=== PATIENT | male | born 1970 | race Caucasian/White ===

== ENCOUNTER 2019-05-08 11:14 | Emergency (ER) | payer BC ==
[2019-05-08] MEDS ORDERED: 0.9 % SODIUM CHLORIDE 1000ML 1,000 ML IV PRN (11:25)
[2019-05-08] MEDS ORDERED: ASPIRIN 81 MG CHEWABLE TABLET PO ONE (11:25)
[2019-05-08] MEDS ORDERED: IPRATROPIUM/ALBUTEROL (0.5MG/3MG) NEB INH ONE (11:28)
[2019-05-08 11:49] LABS: ABSOLUTE NEUTROPHIL COUNT 11.83; BASO % 0.1 % (0-6); EOS % 0.3 % (0-6); GRAN % 78.7 % (47-80); HEMATOCRIT 41.6 % (42.0-52.0); HEMOGLOBIN 14.9 gm/dl (14.0-18.0); LYMPH % 15.2 % (16-45); MEAN CELL VOLUME 88.3 fl (81-97); MEAN CORPUSCULAR HEMOGLOBIN 31.6 pg (27-33); MEAN CORPUSCULAR HGB CONC 35.8 g/dl (32-36); MEAN PLATELET VOLUME 8.6 fl (7.4-10.4); MONO % 5.7 % (0-9); PLATELET COUNT 291 K/uL (130-400); RED BLOOD COUNT 4.71 M/uL (4.40-5.70); RED CELL DISTRIBUTION WIDTH 12.5 % (11.5-14.5)
[2019-05-08 11:59] LABS: PARTIAL THROMBOPLASTIN TIME 24.7 SECONDS (24.5-39.1)
[2019-05-08 12:01] LABS: BLOOD UREA NITROGEN 17 mg/dL (6-20); EST GLOMERULAR FILTRATION RATE > 60 mL/min
[2019-05-08 12:04] LABS: GLUCOSE,RANDOM 140 mg/dL (74-109)
--- NOTE | 2019-05-08 12:06 | Emergency Department Record ---
History of Present Illness - General Chief Complaint: Chest Pain Stated Complaint: HYPERTENTION,CHEST PAIN Time Seen by Provider: 05/08/19 11:23 Source: Patient, RN notes reviewed Mode of Arrival: Ambulatory - History of Present Illness Initial Comments: chest pain started yesterday and some heaviiness in the chest today and also coughing and sob and no history of heart disease but smokes cigs and has COPD and uses duoneb at home. Clear productive sputum. pain is reproducible with rotation of his shoulders. Patient had low back injections yesterday at the pain clinic at [facility] [place] Complaint: Chest pain Onset/Timin -: Days(s) Pain Location: Left chest Improves With: Nothing Worsens With: Nothing - Related Data Home Medications Medication Instructions Recorded Confirmed Last Taken Fluoxetine HCl [Prozac] 60 mg PO DAILY 05/08/19 05/08/19 05/07/19 Loratadine 10 mg PO DAILY 05/08/19 05/08/19 05/07/19 Losartan Potassium 100 mg PO DAILY 05/08/19 05/08/19 05/08/19 Ranitidine HCl [Zantac] 300 mg PO BID 05/08/19 05/08/19 05/08/19 Previous Rx's Medication Instructions Recorded Azithromycin 250 mg PO DAILY #6 tablet 05/08/19 Allergies Allergy/AdvReac Type Severity Reaction Status Date / Time No Known Drug Allergies Allergy Verified 05/08/19 11:46 Travel Screening - Travel/Exposure Within Last 30 Days Have you traveled within the last 30 days?: No - Travel/Exposure Within Last Year Have you traveled outside the [place] in the last year?: No - Additonal Travel Details Have you been exposed to anyone with a communicable illness?: No - Travel Symptoms Symptom Screening: None Review of Systems Reviewed: No additional complaints except as noted below Constitutional: Reports: As per HPI. Denies: Chills, Fever, Malaise, Night sweats, Weakness, Weight change Eyes: Reports: As per HPI. Denies: Eye discharge, Eye pain, Photophobia, Vision change ENT: Reports: As per HPI. Denies: Congestion, Dental pain, Ear pain, Epistaxis, Hearing loss, Throat pain Respiratory: Reports: As per HPI, Cough, Dyspnea. Denies: Hemoptysis, Stridor, Wheezes Cardiovascular: Reports: As per HPI, Chest pain. Denies: Arrhythmia, Dyspnea on exertion, Edema, Murmurs, Orthopnea, Palpitations, Paroxysmal nocturnal dyspnea, Rheumatic Fever, Syncope Endocrine: Reports: As per HPI. Denies: Fatigue, Heat or cold intolerance, Polydipsia, Polyuria Gastrointestinal: Reports: As per HPI. Denies: Abdominal pain, Constipation, Diarrhea, Hematemesis, Hematochezia, Melena, Nausea, Vomiting Genitourinary: Reports: As per HPI. Denies: Dysuria, Frequency, Hematuria, Incontinence, Retention, Testicular pain, Testicular mass, Urgency Musculoskeletal: Reports: As per HPI. Denies: Arthralgia, Back pain, Gout, Joint swelling, Myalgia, Neck pain Skin: Reports: As per HPI. Denies: Bruising, Change in color, Change in hair/nails, Lesions, Pruritus, Rash Neurological: Reports: As per HPI. Denies: Abnormal gait, Confusion, Headache, Numbness, Paresthesias, Seizure, Tingling, Tremors, Vertigo, Weakness Psychiatric: Reports: As per HPI. Denies: Anxiety, Auditory hallucinations, Depression, Homicidal thoughts, Suicidal thoughts, Visual hallucinations Hematological/Lymphatic: Reports: As per HPI. Denies: Anemia, Blood Clots, Easy bleeding, Easy bruising, Swollen glands Past Medical History - SOCIAL HISTORY Smoking Status: Current every day smoker Alcohol Use: None Drug Use: None - RESPIRATORY Hx Respiratory Disorders: Yes Hx Asthma: Yes Hx COPD: Yes - CARDIOVASCULAR Hx Cardio Disorders: Yes Hx Cardiac Cath: Yes Hx Hypertension: Yes - NEURO Hx Neuro Disorders: Yes Hx Headaches: Yes - GI Hx GI Disorders: No - Hx Genitourinary Disorders: No - ENDOCRINE Hx Endocrine Disorders: No - MUSCULOSKELETAL Hx Musculoskeletal Disorders: No - PSYCH Hx Psych Problems: No - HEMATOLOGY/ONCOLOGY Hx Hematology/Oncology Disorders: No Family Medical History Any Significant Family History?: No Physical Exam - General General Appearance: Alert, Oriented x3, Cooperative, No acute distress - Head Head exam: Normal inspection - Eye Eye exam: Normal appearance, PERRL Pupils: Normal accommodation - ENT ENT exam: Normal exam, Mucous membranes moist, Normal external ear exam, Normal orophraynx, TM's normal bilaterally Ear exam: Normal external inspection. negative: External canal tenderness Nasal Exam: Normal inspection. negative: Discharge, Sinus tenderness Mouth exam: Normal external inspection, Tongue normal Teeth exam: Normal inspection. negative: Dental caries Throat exam: Normal inspection. negative: Tonsillar erythema, Tonsillar exudate - Neck Neck exam: Normal inspection, Full ROM. negative: Tenderness - Respiratory Respiratory exam: Normal lung sounds bilaterally. negative: Respiratory distress - Cardiovascular Cardiovascular Exam: Regular rate, Normal rhythm, Normal heart sounds - GI/Abdominal GI/Abdominal exam: Soft, Normal bowel sounds. negative: Tenderness - Rectal Rectal exam: Deferred - exam: Deferred - Extremities Extremities exam: Normal inspection, Full ROM, Normal capillary refill. negative: Tenderness - Back Back exam: Reports: Normal inspection, Full ROM. Denies: Muscle spasm, Rash noted, Tenderness - Neurological Neurological exam: Alert, Normal gait, Oriented X3, Reflexes normal - Psychiatric Psychiatric exam: Normal affect, Normal mood - Skin Skin exam: Dry, Intact, Normal color, Warm Course Vital Signs 05/08/19 11:20 Temperature 97.9 F Pulse Rate 95 H Respiratory 20 Rate Blood Pressure 143/101 Pulse Ox 97 - Reevaluation(s) Reevaluation #1: feeling better , breathing better 05/08/19 14:46 Reevaluation #2: second set of cardiac enzymes neg 05/08/19 14:56 Reevaluation #3: told patient he may need a stress test next week 05/08/19 14:59 Medical Decision Making - Data Complexity MDM Data: Labs Ordered and/or Reviewed (trop t negative ,WBC 15,000), X-Ray Ordered and/or Reviewed (chest xray negative), EKG Ordered and/or Reviewed (EKG, no acute changes, NSR ) - Lab Data Result diagrams: 05/08/19 11:35 05/08/19 11:35 Lab Results 05/08/19 Range/Units 11:35 WBC 15.0 H (4.2-12.2) K/uL RBC 4.71 (4.40-5.70) M/uL Hgb 14.9 (14.0-18.0) gm/dl Hct 41.6 L (42.0-52.0) % MCV 88.3 (81-97) fl MCH 31.6 (27-33) pg MCHC 35.8 (32-36) g/dl RDW 12.5 (11.5-14.5) % Plt Count 291 (130-400) K/uL MPV 8.6 (7.4-10.4) fl Gran % 78.7 (47-80) % Lymphocytes % 15.2 L (16-45) % Monocytes % 5.7 (0-9) % Eosinophils % 0.3 (0-6) % Basophils % 0.1 (0-6) % Absolute Neutrophils 11.83 Disposition Clinical Impression: Bronchitis, Tobacco use COPD (chronic obstructive pulmonary disease) Qualifiers: COPD type: COPD with acute exacerbation Qualified Code(s): J44.1 - Chronic obstructive pulmonary disease with (acute) exacerbation Disposition: Home, Self-Care Condition: (1) Good Instructions: Acute Bronchitis (ED) Additional Instructions: follow up with family DR in 5 days patient may need a stress test Prescriptions: Azithromycin 250 mg PO DAILY #6 tablet Forms: Patient Portal Access Time of Disposition: 14:46 Quality - Quality Measures Quality Measures: N/A - Blood Pressure Screening Does Patient Have Any of the Following: No, Active Dx of HTN Blood Pressure Classification: Hypertensive Reading Systolic Measurement: 143 Diastolic Measurement: 101 Screening for High Blood Pressure: Patient Exclusion, Hx of HTN [G9744]
[2019-05-08] MEDS ORDERED: AZITHROMYCIN 500 MG TABLET PO ONE (14:55)
--- NOTE | 2019-05-09 07:19 | RADIOLOGY REPORT ---
EXAM: CHEST, TWO VIEWS HISTORY: LEFT SIDED CHEST PRESSURE AND TIGHTNESS. ELEVATED WHITE BLOOD CELL COUNT TODAY. TECHNIQUE: Two views of the chest were obtained. Comparison: None. FINDINGS: The heart and mediastinum are of normal size. The lungs are clear of any pneumonia, effusion, edema, pneumothorax or pulmonary nodule. The skeletal structures are unremarkable. No evidence of any free air underneath the diaphragm. IMPRESSION: NO SIGN OF ANY ACUTE OR SPECIFIC CHEST PATHOLOGY. JOB NUMBER: [id number] MTDD
== END 2019-05-08 15:16 | disposition home or self-care (01) ==
LOC: ER 11:14
DX: J44.1 Chronic obstructive pulmonary disease with (acute) exacerbation (principal); J20.9 Acute bronchitis, unspecified; J44.0 Chronic obstructive pulmonary disease with (acute) lower respiratory infection; R06.02 Shortness of breath; I10 Essential (primary) hypertension; F17.210 Nicotine dependence, cigarettes, uncomplicated
CPT/HCPCS: 71046; 80048; 84484; 85025; 85379; 85610; 85730; 93005; 93010; 94640; 99284